=== PATIENT | male | born 1970 | race Caucasian/White ===

== ENCOUNTER → 2018-02-23 | Outpatient (CLI) | payer OTHER ==
[~2018-02-23] MED LIST: B-COCAP2 PO; CHOL100010 PO; EFFSR150 PO; FLUT0.0529; LORA10CA2 PO; MAGNTAB17; MOME200A INH; NRN600 PO; OPTIRAY 320 IV PRN; TRAM-10 PO; TRAZ100T29 PO
--- NOTE | 2018-02-24 07:18 | DIAGNOSTIC IMAGING REPORT ---
CT OF THE ABDOMEN AND PELVIS WITH AND WITHOUT CONTRAST HEMATURIA PROTOCOL CLINICAL HISTORY: Microscopic hematuria. COMPARISON STUDY: None. TECHNIQUE: Unenhanced and split bolus phase imaging of the abdomen and pelvis was performed. Injection of 120 cc Optiray 320 IV was uneventful. A dose lowering technique was utilized adhering to the principles of ALARA. 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 There is no hydronephrosis or hydroureter. No upper tract filling defects are identified. No discrete bladder lesion is identified although the bladder is partially obscured on this exam. The liver, spleen, adrenal glands and pancreas are normal. There is no biliary or pancreatic ductal dilatation. Mild mesenteric infiltration is of doubtful significance. Caliber and wall thickness of small and large bowel are normal. The appendix is normal. There is no lymphadenopathy. A fat-containing right inguinal hernia is present. There are no suspicious osseous lesions. IMPRESSION: 1. No CT findings to explain hematuria. No urinary calculi or hydronephrosis. No upper tract lesions. 2. 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 Electronically signed by: Marquez Marie M.D. 02/24/2018 7:17 AM Dictated Date/Time: 02/23/2018 2:28 PM
== END | disposition home or self-care (01) ==
LOC: C.CTS 13:42
PROVIDERS: ATTEND Urology
DX: R31.29 Other microscopic hematuria (principal)